=== PATIENT | male | born 1970 ===

== ENCOUNTER 2017-02-18 17:02 | Emergency (ER) | payer MEDICAID ==
[2017-02-18 17:07] VITALS: BMI 28.1
[2017-02-18 17:11] VITALS: TEMP 98.8
[2017-02-18 18:35] LABS: URINE BILIRUBIN NEGATIVE (NEGATIVE); URINE BLOOD NEGATIVE (NEGATIVE); URINE GLUCOSE (UA) NEGATIVE (NEGATIVE); URINE KETONE NEGATIVE (NEGATIVE); URINE LEUKOCYTE ESTERASE NEGATIVE Leu/uL (NEGATIVE); URINE PROTEIN TRACE mg/dL (<30 mg/dL)
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
[2017-02-18 18:38] LABS: URINE APPEARANCE CLEAR (CLEAR); URINE COLOR LIGHT YELLOW (YELLOW)
[2017-02-18 19:06] LABS: URINE BACTERIA MANY (NEG); URINE EPITHELIAL CELLS 0 - 2 /hpf (0-5); URINE WBC 0 - 2 /hpf (0-6)
--- NOTE | 2017-02-18 19:18 | US ---
EXAM: US Scrotum EXAM DATE/TIME: 02/18/2017 5:56 PM CLINICAL HISTORY: 46 years old, male; Pain; Scrotum pain; Additional info: L testicular pain, R/O torsion TECHNIQUE: Real-time ultrasound of the scrotum with color Doppler and image documentation. COMPARISON: There are no prior studies for comparison. FINDINGS: Right: Right testicle measures approximately 4.9 x 2.25 x 2.70 cm.There is expected blood flow on Doppler imaging. There are no testicular masses. There is a small hydrocele. Right epididymal head measures approximately 12 x 11 mm. There is expected flow in the epididymal head. Left: Left testicle measures approximately 4.84 x 2.31 x 2.65 cm. There are no testicular masses.There is expected intratesticular blood flow. There is a moderate-sized hydrocele.Left epididymal head measures approximately 18 x 11 mm. There are multiple small epididymal head cysts. There is a left varicocele. IMPRESSION: No torsion; left varicocele; moderate-sized left hydrocele
--- NOTE | 2017-02-18 20:00 | RAD ---
EXAM: XR Left Hip With Pelvis When Performed, 2 or 3 Views EXAM DATE/TIME: 02/18/2017 5:57 PM CLINICAL HISTORY: 46 years old, male; Pain; Hip pain; Left hip TECHNIQUE: Two or three views of the left hip, with pelvis when performed. COMPARISON: There are no prior studies for comparison. FINDINGS: Bones/joints: No pelvic fractures are visualized. Sacrum is partially obscured by enteric contents. Sacroiliac joints are patent. There is severe degenerative changes in the left hip. There is joint space narrowing with subchondral sclerosis and subchondral cyst formation. There are less extensive degenerative changes in the right hip. Mineralization is normal. Soft tissues: see above Gastrointestinal tract: There is a moderately large amount of stool in the visualized colon IMPRESSION: Severe degenerative change of the left hip; constipation
[2017-02-18 20:52] VITALS: BP 130/82; PULSE 78; RESP 17; O2SAT 99
--- NOTE | 2017-02-19 14:35 | RAD ---
PROCEDURE: Radiographs of the Lumbar Spine. HISTORY: back pain COMPARISON: No prior. FINDINGS: BONES: Normal alignment. No listhesis. No fracture. Bilateral hip arthrosis left much greater than right DISC SPACES: Unremarkable. OTHER FINDINGS: Stool retention IMPRESSION: No lumbar fracture versus significant lumbar pathology noted Bilateral hip arthrosis left especially severe
== END 2017-02-18 20:52 | disposition home or self-care (01) ==
LOC: ED 17:02 → MERGE 17:02 → ED 20:52
DX: M16.12 Unilateral primary osteoarthritis, left hip (principal); N43.3 Hydrocele, unspecified; I86.1 Scrotal varices
CPT/HCPCS: 72110; 73502; 81001; 87086; 93975; 96372; 99284; J1885

== ENCOUNTER 2017-06-12 16:44 | Emergency (ER) | payer MEDICAID, OTHER ==
[2017-06-12 16:44] VITALS: BMI 28.1
[2017-06-12 17:08] VITALS: BP 129/85; PULSE 69; RESP 18; TEMP 98.6; O2SAT 97
[2017-06-12] MEDS ORDERED: Tetracaine 0.5% Ophth 2 ML BOTTLE OS STA (17:24)
--- NOTE | 2017-06-12 17:58 | ED PDOC ---
Arrival/HPI - General Chief Complaint: Eye Problem Time Seen by Provider: 06/12/17 17:10 Historian: Patient - History of Present Illness Narrative History of Present Illness (Text): 06/12/17 17:55 A 47 year old male presents to the emergency department complaining of left eye erythema and irritation for the past 3 days. 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 Patient denies any fever, chills, or any other complaints. Time/Duration: Prior to Arrival Symptom Course: Unchanged Quality: Other Context: Work Past Medical History - Provider Review Nursing Documentation Reviewed: Yes - Infectious Disease Hx of Infectious Diseases: None - Psychiatric Hx Substance Use: No - Anesthesia Hx Anesthesia: No - Suicidal Assessment Feels Threatened In Home Enviroment: No Family/Social History - Physician Review Nursing Documentation Reviewed: Yes Family/Social History: No Known Family HX Smoking Status: Light Smoker < 10 Cigarettes Daily Hx Alcohol Use: No (stopped already) Hx Substance Use: No Allergies/Home Meds Allergies/Adverse Reactions: Allergies No Known Allergies Allergy (Unverified 11/10/14 19:28) Review of Systems - Physician Review All systems were reviewed & negative as marked: Yes - Review of Systems Constitutional: absent: Fevers, Night Sweats Eyes: Eye Pain (left eye erythema and irritation) Physical Exam Vital Signs Reviewed: Yes Vital Signs Temp Pulse Resp BP Pulse Ox 06/12/17 17:03 98.6 F 69 18 129/85 97 Temperature: Afebrile Blood Pressure: Normal Pulse: Regular Respiratory Rate: Normal Appearance: Positive for: Well-Appearing, Non-Toxic, Comfortable Pain Distress: None Mental Status: Positive for: Alert and Oriented X 3 - Systems Exam Head: Present: Atraumatic, Normocephalic Pupils: Present: PERRL Extroacular Muscles: Present: EOMI Conjunctiva: Present: Injected (Left eye injected with foreign body identified at the 7 o'clock position) Mouth: Present: Moist Mucous Membranes Neurological: Present: GCS=15, CN II-XII Intact, Speech Normal Skin: Present: Warm, Dry, Normal Color. No: Rashes Psychiatric: Present: Alert, Oriented x 3, Normal Insight, Normal Concentration Medical Decision Making ED Course and Treatment: 06/12/17 17:55 Impression: A 47 year old male with left eye erythema and irritation. Plan: -- Tetracaine -- Reassess and disposition Progress Notes: 06/12/17 17:54 Attempt to remove foreign body in emergency room was unsuccessful. Case discussed with research geneticist, Dr. Reeder, states he will see patient tomorrow in his office. - Medication Orders Current Medication Orders: Discontinued Medications Tetracaine HCl (Tetracaine 0.5% Ophth Soln) 1 drop OS STAT STA Stop: 06/12/17 17:25 Last Admin: 06/12/17 17:45 Dose: 1 drop Comments: given by MD Stefan Mckeon Statement The provider has reviewed the documentation as recorded by the Priscillaibkizzy Peace Provider Scribe Attestation: All medical record entries made by the Scribe were at my direction and personally dictated by me. I have reviewed the chart and agree that the record accurately reflects my personal performance of the history, physical exam, medical decision making, and the department course for this patient. I have also personally directed, reviewed, and agree with the discharge instructions and disposition. Disposition/Present on Arrival - Present on Arrival Any Indicators Present on Arrival: No History of DVT/PE: No History of Uncontrolled Diabetes: No Urinary Catheter: No History of Decub. Ulcer: No History Surgical Site Infection Following: None - Disposition Have Diagnosis and Disposition been Completed?: Yes Diagnosis: Conjunctivitis, Eye foreign body Disposition: HOME/ ROUTINE Disposition Time: 06:00 Condition: STABLE Discharge Instructions (ExitCare): Eye Foreign Body (ED), Conjunctivitis (ED) Additional Instructions: follow up with eye doctor herman owen want morning appointment, report to [place] office: Address: [address] [place] [id number]. if you want afternoon appointment, report to [place] Prescriptions: Polymyxin/Trimethoprim Sulfate [Polytrim Ophth Soln] 1 drop LEFTEYE Q4 #1 bottle Referrals: Huber Yadav, [Primary Care Provider] - Follow up with primary Garret Reeder [Staff Provider] - Follow up with primary Forms: [employer] (Khmer), SCHOOL NOTE
== END 2017-06-12 18:10 | disposition home or self-care (01) ==
LOC: ED 16:44
DX: H10.9 Unspecified conjunctivitis (principal); T15.92XA Foreign body on external eye, part unspecified, left eye, initial encounter; X58.XXXA Exposure to other specified factors, initial encounter; F17.210 Nicotine dependence, cigarettes, uncomplicated